=== PATIENT | male | born 1955 | race Caucasian/White ===

== ENCOUNTER 2018-04-01 16:00 | Outpatient (CLI) | payer BC ==
[~2018-04-01] VITALS: Ht 172.7 cm; Wt 75.7 kg
== END 2018-04-01 16:04 | disposition home or self-care (01) ==
LOC: PREOP 16:00
PROVIDERS: ATTEND Surgery
DX: Z01.818 Encounter for other preprocedural examination (principal)

== ENCOUNTER 2018-04-12 08:32 | Day surgery (SDC) | payer BC ==
[~2018-04-12] VITALS: Ht 172.7 cm; Wt 75.7 kg
[~2018-04-12 08:32] MED LIST: NS IV 500 ML 500 ML ONE
[2018-04-12] MEDS ORDERED: NS IV 500 ML 500 ML IV PRN (08:39)
[2018-04-12] MEDS ORDERED: fentaNYL INJECTION 100 MCG/2 ML AMP IVP ONE (08:45)
[2018-04-12] MEDS ORDERED: MIDAZOLAM 2 MG/2 ML (VERSED) VIAL IVP ONE (08:45)
[2018-04-12 09:03] VITALS: BP 137/90
--- NOTE | 2018-04-12 09:27 | History & Physicial ---
History of Present Illness History of Present Illness Reason for visit/HPI to undergo screening colonoscopy. Family history of colon cancer involving his paternal grandmother Date of Admission 04/12/18 Date Seen by a Provider: Apr 12, 2018 Time Seen by a Provider: 09:26 I consulted on this patient on 04/12/18 09:25 Attending Physician Mathew Hightower MD Admitting Physician Henrik Sarmiento MD Consult Allergies and Home Medications Allergies Coded Allergies: No Known Drug Allergies (Unverified , 04/01/18) Home Medications No Active Prescriptions or Reported Meds Patient Home Medication List Home Medication List Reviewed: Yes Past Dbrepvb-Cshnpb-Xfwzjw Hx Patient Social History Marrital Status: Employed/Student: employed Alcohol Use: Occasionally Uses Recreational Drug Use: Yes Drug of Choice: THC Type Used: Pipe 2nd Hand Smoke Exposure: No Recent Foreign Travel: No Contact w/other who traveled: No Recent Hopitalizations: No Recent Infectious Disease Expo: No Seasonal Allergies Seasonal Allergies: No Surgeries No Respiratory No Cardiovascular No Neurological No Genitourinary No Gastrointestinal No Musculoskeletal No Endocrine History of Endocrine Disorders: No HEENT History of HEENT Disorders: No Cancer No Psychosocial History of Psychiatric Problem: No Integumentary History of Skin or Integumenta: No Blood Transfusions History of Blood Disorders: No Review of Systems Constitutional: no symptoms reported EENTM: no symptoms reported Respiratory: no symptoms reported Cardiovascular: no symptoms reported Gastrointestinal: no symptoms reported Genitourinary: no symptoms reported Skin: no symptoms reported Psychiatric/Neurological: No Symptoms Reported Physical Exam Vital Signs Vital Signs - First Documented 04/12/18 09:03 Temp 97.0 Pulse 87 Resp 18 B/P (MAP) 137/90 (106) Pulse Ox 98 O2 Delivery Room Air Capillary Refill : Height, Weight, BMI Height: 5'8.00" Weight: 167lbs. 0.0oz. [id number]; 25.4 BMI Method: General Appearance: No Apparent Distress Neck: Normal Inspection Respiratory: Lungs Clear Cardiovascular: Regular Rate, Rhythm Gastrointestinal: Non Tender, Soft Rectal: Deferred Neurologic/Psychiatric: Oriented x3 Skin: Warm/Dry Assessment/Plan Assessment and Plan gentleman to undergo screening colonoscopy. Discussed in detail. Admission Diagnosis Admission Status: Other (Outpt Proc) MATHEW HIGHTOWER MD Apr 12, 2018 09:27
--- NOTE | 2018-04-12 09:27 | Conscious Sedation/ASA ---
Conscious Sedation Pre-Proced Time 09:27 ASA Score 1 For ASA 3 and 4: Consider anesthesia and medical clearance. Also, for patients with a history of failed moderate sedation consider anesthesia. Airway Lungs Heart ASA score ASA 1: a normal healthy patient ASA 2: a patient with a mild systemic disease (mid diabetes, controlled hypertension, obesity ASA 3: a patient with a severe systemic disease that limits activity (angina , COPD, prior Myocardial infarction) ASA 4: a patient with an incapacitating disease that is a constant threat to life (CHF, renal failure) ASA 5: a moribund patient not expected to survive 24 hrs. (ruptured aneurysm) ASA 6: a declared brain- patient whose organs are being harvested. For emergent operations, add the letter E after the classification Mallampati Classification Grade 1 Sedation Plan Discussed options with patient/fam The patient is an appropriate candidate to undergo the planned procedure, sedation, and anesthesia. The patient immediately re-assessed prior to indication. MATHEW HIGHTOWER MD Apr 12, 2018 09:27
[2018-04-12] MEDS ORDERED: fentaNYL INJECTION 100 MCG/2 ML AMP ONE (09:41)
[2018-04-12] MEDS ORDERED: MIDAZOLAM 2 MG/2 ML (VERSED) VIAL ONE ×5 (09:41→10:21)
--- NOTE | 2018-04-12 10:41 | Endo Procedure Record ---
Endo Procedure Report Date of Procedure Last Colonoscopy: No Apr 12, 2018 Surgeon (s) MATHEW HIGHTOWER MD Post Procedure/Op Diagnosis sigmoid diverticulosis Procedure Performed colonoscopy to cecum Description of Procedure Anesthesia Type: Conscious Sedation Specimen(s) collected/removed None Description of the Procedure Indication for the procedure: This gentleman came in for screening colonoscopy. He reported a family history of colon cancer in his grandparents. Informed consent was obtained after reviewing the procedure in detail. Description of the procedure: He was placed in left lateral decubitus position and his vital signs were monitored. Conscious sedation was achieved using Versed and fentanyl. Digital rectal examination was unremarkable. The colonoscope was then introduced into the rectum and advanced all the way up to the cecum. The scope was then withdrawn slowly and the mucosa examined in a systematic fashion. Findings: Sigmoid diverticulosis. No polyps were found He tolerated the procedure well and was taken back to the nursing area in a stable condition. Impression: Screening colonoscopy. No polyps. Positive family history. Recommend repeating in 5 years. Copy Copies To 1: HERBIE BALL MD, XAVIER M MD Apr 12, 2018 10:41
--- NOTE | 2018-04-12 10:44 | Discharge Inst-Simple/Standard ---
Discharge Inst-Standard Discharge Medications New, Converted or Re-Newed RX: Other Patient Instructions/Follow Up Plan of Care/Instructions/FU: repeat colonoscopy in 5 years Activity as Tolerated: Yes Discharge Diet: No Restrictions MATHEW HIGHTOWER MD Apr 12, 2018 10:44
[2018-04-12 10:50] VITALS: BP 113/74
[2018-04-12 11:13] VITALS: BP 124/84
[2018-04-12 11:42] VITALS: BP 124/84
== END 2018-04-12 11:30 | disposition home or self-care (01) ==
LOC: ENDO 08:32
PROVIDERS: ATTEND Surgery
DX: Z12.11 Encounter for screening for malignant neoplasm of colon (principal); Z80.0 Family history of malignant neoplasm of digestive organs

== ENCOUNTER → 2018-08-31 | Outpatient (CLI) | payer BC ==
[~2018-08-31] VITALS: Ht 172.7 cm; Wt 72.6 kg
[~2018-08-31] MED LIST changes: +HYDR-3816 PO; -NS IV 500 ML 500 ML ONE
== END | disposition home or self-care (01) ==
LOC: PREOP 08-26 05:53
PROVIDERS: ATTEND Surgery
DX: Z01.818 Encounter for other preprocedural examination (principal)

== ENCOUNTER 2018-09-02 07:03 | Day surgery (SDC) | payer BC ==
[~2018-09-02] VITALS: Ht 172.7 cm; Wt 73.0 kg
[2018-09-02] VITALS (14 sets, daily range): BP systolic 13–148; BP diastolic 66–87
[2018-09-02] MEDS ORDERED: ceFAZolin 2 GM/50 ML NS 50 ML IV ONE (07:15)
[2018-09-02] MEDS ORDERED: ceFAZolin 2 GM/50 ML NS 50 ML ONE (07:17)
[2018-09-02 07:42] LABS: BASOPHILS % (AUTO) 1 % (0-10); EOSINOPHILS # (AUTO) 0.4 10^3/uL (0.0-0.3); EOSINOPHILS % (AUTO) 6 % (0-10); HEMATOCRIT 44 % (40-54); HEMOGLOBIN 14.7 G/DL (13.3-17.7); LYMPHOCYTES # (AUTO) 2.1 X 10^3 (1.0-4.0); LYMPHOCYTES % (AUTO) 35 % (12-44); MEAN CORPUSCULAR HEMOGLOBIN 33 PG (25-34); MEAN CORPUSCULAR HGB CONC 34 G/DL (32-36); MEAN CORPUSCULAR VOLUME 97 FL (80-99); MEAN PLATELET VOLUME 9.7 FL (7.4-10.4); MONOCYTES # (AUTO) 0.7 X 10^3 (0.0-1.0); MONOCYTES % (AUTO) 11 % (0-12); NEUTROPHILS # (AUTO) 2.8 X 10^3 (1.8-7.8); NEUTROPHILS % (AUTO) 47 % (42-75); PLATELET COUNT 311 10^3/uL (130-400); RED CELL DISTRIBUTION WIDTH 13.1 % (10.0-14.5)
[2018-09-02] MEDS: LACTATED RINGERS 1,000 ML IV PRN ×2 (07:46→09:32)
--- NOTE | 2018-09-02 08:02 | Progress Note-Pre Operative ---
Pre-Operative Progress Note H&P Reviewed The H&P was reviewed, patient examined and no changes noted. Date Seen by Provider: Sep 02, 2018 Time Seen by Provider: 08:00 Date H&P Reviewed: Sep 02, 2018 Time H&P Reviewed: 07:55 Pre-Operative Diagnosis: Symptomatic Left inguinal hernia LASHAY ALLEN APRN Sep 02, 2018 08:02
[2018-09-02] MEDS ORDERED: HYDR-3816 PO (08:05)
--- NOTE | 2018-09-02 08:06 | Discharge Inst-Surgical ---
D/C Lap Instructions-KIDO New, Converted, or Re-Newed RX: RX on Chart Follow Up Appt in 2 weeks Activity as tolerated No driving for 24 hours No driving while on pain medications Incentive Spirometry use every 2 hours while awake Regular Diet Symptoms to Report: Fever over 101 degree F, Nausea/Vomiting Infection Signs and Symptoms to report: Increased redness, Foul odor of wound, Increased drainage Bathing instructions: May shower Operative Area Clean/Dry; Keep incision clean/dry If any problems/questions: Contact your physician or go to Emergency Room LASHAY ALLEN APRN Sep 02, 2018 08:06
[2018-09-02] MEDS ORDERED: morphine INJ 10 MG/ML 1ML (SYR OR VIAL) IVP PRN (08:15)
[2018-09-02] MEDS ORDERED: HYDROcodone/APAP 5 MG/325 MG (LORTAB) TAB PO ONE (08:15)
[2018-09-02] MEDS ORDERED: ACETAMINOPHEN 325 MG TABLET PO PRN (08:15)
[2018-09-02] MEDS ORDERED: ONDANSETRON 4 MG/2 ML (SDV) Z0FRAN IVP PRN (08:15)
[2018-09-02] MEDS ORDERED: SEVOFLURANE (ULTANE) 15 ML INHAL SOLN ONE (08:33)
[2018-09-02] MEDS ORDERED: fentaNYL INJECTION 100 MCG/2 ML AMP ONE (08:33)
[2018-09-02] MEDS ORDERED: MIDAZOLAM 2 MG/2 ML (VERSED) VIAL ONE (08:33)
[2018-09-02] MEDS ORDERED: ROCURONIUM 10 MG/ML 5 ML SYRINGE IV ONE (08:33)
[2018-09-02] MEDS ORDERED: NEOSTIGMINE 3 MG/3 ML VIAL ONE (08:33)
[2018-09-02] MEDS ORDERED: LIDOCAINE PF 2% 5 ML (XYLOCAINE) VIAL ONE (08:33)
[2018-09-02] MEDS ORDERED: DEXAMETHASONE 10 MG/ML (DECADRON) 1 ML VIAL ONE (08:33)
[2018-09-02] MEDS ORDERED: proPOfol 200 MG/20 ML (DIPRIVAN) VIAL IV ONE (08:33)
[2018-09-02] MEDS ORDERED: ONDANSETRON 4 MG/2 ML (SDV) Z0FRAN ONE (08:33)
[2018-09-02] MEDS ORDERED: GLYCOPYRROLATE 0.2 MG/ML (ROBINUL) 2 ML VIAL ONE (08:33)
[2018-09-02] MEDS ORDERED: BUP/EPI 0.5% 1:200,000 (MARCAINE) 10ML VIAL IJ ONE (09:01)
--- NOTE | 2018-09-02 10:04 | Progress Note-Post Operative ---
Post-Operative Progess Note Surgeon (s)/Transcribing Operators Supervisor (s) Surgeon MELI PARK MD Transcribing Operators Supervisor: gregory becerra ALTO SINGER Pre-Operative Diagnosis Symptomatic Left inguinal hernia Post-Operative Diagnosis left indirect inguinal hernia Procedure & Operative Findings Date of Procedure 09/02/18 Procedure Performed/Findings laparoscopic left inguinal hernia repair with mesh. Anesthesia Type GET Estimated Blood Loss Estimated blood loss (mL): minimal Specimens/Packing Specimens Removed none MELI PARK MD Sep 02, 2018 10:04
[2018-09-02] MEDS ORDERED: HYDROmorphone 2 MG/ML VIAL (DILAUDID) IV ONE (10:15)
[2018-09-02] MEDS ORDERED: morphine INJ 10 MG/ML 1ML (SYR OR VIAL) IVP ONE (10:15)
[2018-09-02] MEDS ORDERED: HYDROcodone/APAP 5 MG/325 MG (LORTAB) TAB ONE (11:55)
[2018-09-02] MEDS: ONDANSETRON 4 MG/2 ML (SDV) Z0FRAN IVP PRN ×2 (14:00→14:01)
--- NOTE | 2018-09-02 14:08 | OPERATIVE REPORT ---
DATE OF SERVICE: 09/02/2018 ATTENDING PRIMARY CARE PHYSICIAN: Dr. Sarmienot. PREOPERATIVE DIAGNOSIS: Symptomatic reducible left inguinal hernia. POSTOPERATIVE DIAGNOSIS: Symptomatic reducible left inguinal hernia. PROCEDURE: Laparoscopic left inguinal hernia repair with mesh. SURGEON: Meli Park MD HOT POND OPERATOR: Dwayne Trotter APRN ANESTHESIA: General endotracheal. ESTIMATED BLOOD LOSS: Minimal. FINDINGS: Symptomatic reducible left inguinal hernia. DISPOSITION: The patient tolerated the procedure well. INDICATIONS: The patient is a 63-year-old male referred over to us for pain, swelling and a palpable bulge in the left inguinal region. Approximately one month ago, he was doing heavy lifting using a shovel and did feel some discomfort in the left inguinal region and then noticed a bulge in the left inguinal region. Over time, he states that the lesion has grown larger in size and became more painful. He was seen in the office and found to have a reducible left inguinal hernia, which was painful to palpation. DESCRIPTION OF PROCEDURE: The patient was brought to the operating room, laid supine on the table. After adequate IV pain and sedative medications and general endotracheal intubation, the abdomen was prepped and draped in a standard surgical fashion. A 0.5% Marcaine with epinephrine was then used to anesthetize the overlying skin in the supraumbilical region and a transverse skin incision was made using a 15 blade. A towel clamp was used to retract the abdominal wall anteriorly and a Veress needle was inserted with a low opening pressure of 0 mmHg and the abdomen was insufflated to 15 mmHg pressure. The Veress needle was removed and a 5 mm Xcel trocar was placed followed by a 5 mm 45 degree angle laparoscope visualizing the peritoneal cavity. A 4-quadrant abdominal exploration was performed. There was a left indirect inguinal hernia identified with nothing within the hernia sac. There was no right inguinal hernia component. What was visualized of the omentum, small bowel and colon appeared normal. Under direct visualization, then we proceeded to place bilateral 5 mm ports under direct visualization after the skin and peritoneal lining were anesthetized using 0.5% Marcaine and a skin incision was made using a 15 blade. The patient was then placed in Trendelenburg position. We then proceeded to open the peritoneal lining close to the conjoined tendon using the Sonicision. We continued laterally towards the inguinal ligament. We then proceeded medially till the Rick's ligament was identified. We then proceeded with inferior dissection of the peritoneal lining as well as the hernia sac using the Sonicision as well as blunt dissection. The cord and its surrounding contents were identified and spared throughout the process with visualization of good hemostasis. A medium size polypropylene mesh was then placed into the peritoneal cavity and tacked to Rick's ligament medially and the conjoined tendon laterally using absorbable tacks. The peritoneal lining was then placed over the mesh and a few tacks placed to hold this in place with visualization of good hemostasis. The 10 mm port site fascia and peritoneum were then closed under direct visualization using a Quinton-Bing device and 0 Vicryl suture. The abdomen was desufflated and the remaining ports were removed. All skin incisions were closed using 4-0 Monocryl running subcuticular sutures. Wounds were then cleaned and covered with Dermabond. The patient tolerated the procedure well. We will start IV normal pain medication as well as a clear liquid diet. Once he is tolerating clears, has good pain control with oral pain medications, ambulating well, we will discharge him home. He will be instructed to do no heavy lifting or exertion for the first 2 weeks and then slowly incorporate more activity; however, continue to refrain from heavy exertion for a total of 6 weeks from the surgery date. Job ID: [id number] DocumentID: [id number] Dictated Date: 09/02/2018 10:03:06 Grey Roll Worker Date: 09/02/2018 14:08:17 Dictated By: MELI PARK MD
--- NOTE | 2018-09-02 14:13 | Anesthesia-General Post-Op ---
General Patient Condition Mental Status/LOC: Same as Preop Cardiovascular: Satisfactory Nausea/Vomiting: Absent Respiratory: Satisfactory Pain: Controlled Complications: Absent Post Op Complications Complications None Follow Up Care/Instructions Patient Instructions None needed. Anesthesia/Patient Condition Patient Condition Patient is doing well, no complaints, stable vital signs, no apparent adverse anesthesia problems. No complications reported per nursing. RENÉE ESCOBEDO CRNA Sep 02, 2018 14:13
== END 2018-09-02 12:50 | disposition home or self-care (01) ==
LOC: SDC 07:03
PROVIDERS: ATTEND Surgery
DX: K40.90 Unilateral inguinal hernia, without obstruction or gangrene, not specified as recurrent (principal); F17.210 Nicotine dependence, cigarettes, uncomplicated; Z80.0 Family history of malignant neoplasm of digestive organs
CPT/HCPCS: 36415; 85025; 87081; 94664

== ENCOUNTER → 2020-07-19 | Outpatient (CLI) | payer BC, MEDICARE ==
[~2020-07-19] MED LIST changes: +HYDR-34 PO; -HYDR-3816 PO
--- NOTE | 2020-07-19 15:46 | Diagnostic Imaging Report ---
INDICATION: Right hip pain. TIME OF EXAM: 12:29 p.m. FINDINGS: Two views of the right hip were obtained. FINDINGS: Normal femoral acetabular alignment. The joint spaces are fairly well maintained. The femoral head and neck are intact. No fracture is seen. IMPRESSION: No acute bony abnormality is detected. Dictated by: Dictated on workstation # [id number]
== END ==
LOC: RAD 11:54
PROVIDERS: ATTEND Family Medicine
DX: M25.551 Pain in right hip (principal)
CPT/HCPCS: 73502

== ENCOUNTER → 2020-11-07 | Outpatient (CLI) | payer MEDICARE | LOC: CARD 15:09 | PROVIDERS: ATTEND Urology | DX: R00.8 Other abnormalities of heart beat (principal) | CPT/HCPCS: 93005 ==